=== PATIENT | female | born 1995 | race Caucasian/White ===

== ENCOUNTER 2017-11-26 14:36 | Inpatient (IN) | payer BC, OTHER, MEDICAID ==
[2017-11-26] MEDS ORDERED: Sodium Chloride 0.9% 10 ML Syringe FLUSH PRN (15:31)
[2017-11-26] MEDS ORDERED: Ondansetron 4 MG/2 ML SDV IVPUSH PRN ×2 (15:31→23:25)
--- NOTE | 2017-11-26 15:51 | PCM.LDHP ---
L&D History of Present Illness - General Date of Service: 11/26/17 Admit Problem/Dx: Patient Status Order with Admit Dx/Problem 11/26/17 15:31 Patient Status [ADT] Routine Admission Diagnosis/Problem Admission Diagnosis/Problem Normal labor Source of Information: Patient History Limitations: Reports: No Limitations - History of Present Illness Introduction:: 22 y/o GIOVANNI 11/27/2017 presented to L&D with contractions q6-12min, EGA 39w6d. GBS negative. Birthing plan reviewed. Blood type A- antibody screen negative, hemoglobin and hematocrit 13.5/37.9 platelets 314,000 on 05/21/17. Rubella immune. Serology nonreactive. Hepatitis B surface antigen negative. HIV negative. GC and chlamydia negative. On 10/01/17 hemoglobin hematocrit 12.5/37.0 platelets 346,000 on 09/12/17 antibody screen negative and patient received RhoGam at that time. GBS -11/07/17. Plan delivery. Improves with: Reports: None Worsens with: Reports: None Associated Symptoms: Reports: N - Related Data Allergies/Adverse Reactions: Allergies Allergy/AdvReac Type Severity Reaction Status Date / Time banana Allergy Respiratory Verified 07/27/15 23:05 Distress [place] Allergy Difficulty Uncoded 07/27/15 23:05 Breathing Home Medications: Home Meds Ondansetron [Zofran ODT] 4 mg PO Q8H PRN #12 tab.dis 07/28/15 [Rx] Tamsulosin HCl [Flomax] 0.4 mg PO DAILY #7 cap.er.24h 07/28/15 [Rx] Nitrofurantoin Macrocrystal [Macrodantin] 100 mg PO BID #14 capsule 07/30/15 [Rx ] traMADol [Ultram] 50 mg PO Q6H #15 tablet 07/30/15 [Rx] Past Medical History - Past Health History Medical/Surgical History: Denies Medical/Surgical History Genitourinary History: Reports: Renal Calculus 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: - Past Surgical History Female Surgical History: Reports: None Social & Family History - Family History Family Medical History: Noncontributory Cardiac: Reports: Heart Failure Endocrine/Metabolic: Reports: Diabetes, type II H&P Review of Systems - Review of Systems: Review Of Systems: See Below General: Reports: No Symptoms HEENT: Reports: No Symptoms Pulmonary: Reports: No Symptoms Cardiovascular: Reports: No Symptoms Gastrointestinal: Reports: No Symptoms Genitourinary: Reports: No Symptoms Musculoskeletal: Reports: No Symptoms Skin: Reports: No Symptoms Psychiatric: Reports: No Symptoms Neurological: Reports: No Symptoms Hematologic/Lymphatic: Reports: No Symptoms Immunologic: Reports: No Symptoms L&D Exam - Exam Exam: See Below - Vital Signs Weight: 201 lb 5 oz - OB Specific Fundal Height In cm: 39 Contraction Duration (sec): 60 Contraction Frequency (min): 6 Contraction Intensity: Moderate to Strong Movement: Active Heart Tones: Present Heart Tones per Min: 135 Heart Rate (FHR) Variability: Moderate (6-25 bmp) Presentation: Vertex - Jones Score Jones Score Cervix Position: Midposition Jones Score Consistency: Soft Jones Score Effacement: >80% Jones Score Dilation: > 5 cm Jones Score Infant's Station: -2 Jones Score Total: 10 - Exam General: Alert, Oriented HEENT: Conjunctiva Clear, Mucosa Moist & [place], PERRLA Neck: Supple, Trachea Midline Lungs: Clear to Auscultation, Normal Respiratory Effort Cardiovascular: Regular Rate, Regular Rhythm GI/Abdominal Exam: Normal Bowel Sounds, Soft Genitourinary: Normal external exam Extremities: Normal Inspection, Normal Range of Motion, Non-Tender, No Pedal Edema, Normal Capillary Refill Skin: Warm, Dry, Intact Neurological: Cranial Nerves Intact, Reflexes Equal Bilateral DTR: 0: Patella (L) (2+ edema), Patella (R) (2+ edema) Psychiatric: Alert, Normal Affect, Normal Mood - Problem List (1) 39 weeks gestation of SNOMED Code(s): 33652593 ICD Code: Z3A.39 - 39 WEEKS GESTATION OF Status: Acute Current Visit: Yes Problem List Initiated/Reviewed/Updated: No Orders Last 24hrs: Active Orders 24 hr Category Date Time Status Patient Status [ADT] Routine ADT 11/26/17 15:31 Active Activity as Tolerated [RC] PFP Care 11/26/17 15:31 Active Communication Order [RC] ASDIRECTED Care 11/26/17 15:31 Active Heart Tones [RC] ASDIRECTED Care 11/26/17 15:31 Active Notify Provider [RC] PFP Care 11/26/17 15:31 Active Notify Provider [RC] PRN Care 11/26/17 15:31 Active Peripheral IV Care [RC] . DIRECTED Care 11/26/17 15:31 Active Pump Management, Intrathecal [RC] ASDIRECTED Care 11/26/17 15:33 Active Urinary Catheter Assessment [RC] ASDIRECTED Care 11/26/17 15:31 Active Vital Signs [RC] PER UNIT ROUTINE Care 11/26/17 15:31 Active Regular Diet [DIET] Diet 11/26/17 Lunch Active ALANINE AMINOTRANSFERASE,ALT [CHEM] Stat Lab 11/26/17 15:34 Ordered ASPARTATE AMNIOTRANSFERASE,AST [CHEM] Stat Lab 11/26/17 15:34 Ordered BLOOD UREA NITROGEN,BUN [CHEM] Stat Lab 11/26/17 15:34 Ordered CBC WITH AUTO DIFF [HEME] Stat Lab 11/26/17 15:34 Ordered CREATININE W/GFR [CHEM] Stat Lab 11/26/17 15:34 Ordered LACTATE DEHYDROGENASE,LDH [CHEM] Stat Lab 11/26/17 15:34 Ordered UA W/O MICROSCOPIC [URIN] Stat Lab 11/26/17 15:31 Ordered URIC ACID [CHEM] Stat Lab 11/26/17 15:34 Ordered Lactated Ringers [Ringers, Lactated] 1,000 ml Med 11/26/17 15:45 Active IV ASDIRECTED Ondansetron [Zofran] Med 11/26/17 15:31 Active 4 mg IVPUSH Q4H PRN Oxytocin [Pitocin] 20 unit Med 11/26/17 15:45 Active Lactated Ringers [Ringers, Lactated] 1,000 ml IV ASDIRECTED Sodium Chloride 0.9% [Saline Flush] Med 11/26/17 15:31 Active 10 ml FLUSH ASDIRECTED PRN Electronic Heart Tones Ext w TOCO [WOMSER] Oth 11/26/17 15:31 Ordered Routine Electronic Heart Tones Internal [WOMSER] Per Unit Oth 11/26/17 15:31 Ordered Routine PIH Panel [OM.PC] Stat Oth 11/26/17 15:34 Ordered Peripheral IV Insertion Adult [OM.PC] Routine Oth 11/26/17 15:31 Ordered Resuscitation Status Routine Resus Stat 11/26/17 15:31 Ordered Medication Orders Lactated Ringer's (Ringers, Lactated) 1,000 mls @ 100 mls/hr IV ASDIRECTED JIM Oxytocin 20 unit/ Lactated (Ringer's) 1,002 mls @ 500 mls/hr IV ASDIRECTED JIM Ondansetron HCl (Zofran) 4 mg IVPUSH Q4H PRN PRN Reason: Nausea/Vomiting Sodium Chloride (Saline Flush) 10 ml FLUSH ASDIRECTED PRN PRN Reason: Keep Vein Open Assessment/Plan Comment:: Plan delivery.
[2017-11-26] MEDS: Lactated Ringers 1,000 ML IV SCH ×2 (17:33→20:01)
--- NOTE | 2017-11-26 18:20 | PCM.SN ---
- Free Text/Narrative Note: 11/26/171816 Amnoitomy clear fluid to very lightly meconium stained, so light difficult to tell. Cervix 6/90 %/Soft mid-position, vertex -1. Cat I FHR.
[2017-11-26] MEDS ORDERED: Nalbuphine 20 MG/ML 1 ML Syringe IVPUSH PRN (20:00)
[2017-11-26] MEDS ORDERED: fentaNYL 100 MCG/2 ML SDV EPIDUR PRN (23:25)
[2017-11-26] MEDS ORDERED: diphenhydrAMINE 50 MG/ML SDV IVPUSH PRN (23:25)
[2017-11-26] MEDS ORDERED: ePHEDrine 50 MG/ML SDV IVPUSH PRN (23:25)
--- NOTE | 2017-11-26 23:28 | PCM.PREANE ---
Preanesthetic Assessment - Procedure Proposed Procedure: Epidural - Anesthesia/Transfusion/Family Hx Anesthesia History: No Prior Anesthesia Family History of Anesthesia Reaction: No Transfusion History: No Prior Transfusion(s) - Review of Systems General: No Symptoms Pulmonary: No Symptoms Cardiovascular: No Symptoms Gastrointestinal: No Symptoms Neurological: No Symptoms Other: Reports: None - Physical Assessment Pulse: 73 O2 Sat by Pulse Oximetry: 98 Respiratory Rate: 18 Blood Pressure: 139/74 Vital Signs: Last Vital Signs Temp 36.7 C 11/26/17 15:31 Pulse 73 11/26/17 16:01 Resp 18 11/26/17 15:31 BP 139/74 11/26/17 16:01 Pulse Ox Height: 1.57 m Weight: 91.314 kg ASA Class: 2E Mental Status: Alert & Oriented x3 Airway Class: Mallampati = 1 Dentition: Reports: Normal Dentition Thyro-Mental Finger Breadths: 3 Mouth Opening Finger Breadths: 3 ROM/Head Extension: Full Lungs: Clear to Auscultation, Normal Respiratory Effort Cardiovascular: Regular Rate, Regular Rhythm - Lab Values: Laboratory Last Values WBC 12.54 K/mm3 (3.98-10.04) H 11/26/17 15:45 RBC 3.98 M/mm3 (3.98-5.22) 11/26/17 15:45 Hgb 11.7 gm/L (11.2-15.7) 11/26/17 15:45 Hct 35.0 % (34.1-44.9) 11/26/17 15:45 MCV 87.9 fl (79.4-94.8) 11/26/17 15:45 MCH 29.4 pg (25.6-32.2) 11/26/17 15:45 MCHC 33.4 g/dl (32.2-35.5) 11/26/17 15:45 RDW Std Deviation 40.7 fL (36.4-46.3) 11/26/17 15:45 Plt Count 314 K/mm3 (182-369) 11/26/17 15:45 MPV 10.1 fl (9.4-12.3) 11/26/17 15:45 Neut % (Auto) 74.2 % (34.0-71.1) H 11/26/17 15:45 Lymph % (Auto) 16.7 % (19.3-51.7) L 11/26/17 15:45 Sebastian % (Auto) 7.8 % (4.7-12.5) 11/26/17 15:45 Eos % (Auto) 0.6 (0.7-5.8) L 11/26/17 15:45 Baso % (Auto) 0.1 % (0.1-1.2) 11/26/17 15:45 Neut # (Auto) 9.31 K/mm3 (1.56-6.13) H 11/26/17 15:45 Lymph # (Auto) 2.10 K/mm3 (1.18-3.74) 11/26/17 15:45 Sebastian # (Auto) 0.98 K/mm3 (0.24-0.36) H 11/26/17 15:45 Eos # (Auto) 0.07 K/mm3 (0.04-0.36) 11/26/17 15:45 Baso # (Auto) 0.01 K/mm3 (0.01-0.08) 11/26/17 15:45 BUN 11 mg/dL (7-18) 11/26/17 15:45 Creatinine 0.7 mg/dL (0.55-1.02) 11/26/17 15:45 Est Cr Clr Drug Dosing 101.39 mL/min 11/26/17 15:45 Estimated GFR (MDRD) > 60 mL/min (>60) 11/26/17 15:45 Uric Acid 6.3 mg/dL (2.6-6.0) H 11/26/17 15:45 AST 16 U/L (15-37) 11/26/17 15:45 ALT 12 U/L (14-59) L 11/26/17 15:45 Lactate Dehydrogenase 192 U/L (81-234) 11/26/17 15:45 Urine Color Light yellow (Yellow) 11/26/17 15:31 Urine Appearance Clear (Clear) 11/26/17 15:31 Urine pH 7.0 (5.0-8.0) 11/26/17 15:31 Ur Specific [place] 1.020 (1.005-1.030) 11/26/17 15:31 Urine Protein Negative (Negative) 11/26/17 15:31 Urine Glucose (UA) Negative (Negative) 11/26/17 15:31 Urine Ketones Negative (Negative) 11/26/17 15:31 Urine Occult Blood Trace-intact (Negative) H 11/26/17 15:31 Urine Nitrite Negative (Negative) 11/26/17 15:31 Urine Bilirubin Negative (Negative) 11/26/17 15:31 Urine Urobilinogen 0.2 (0.2-1.0) 11/26/17 15:31 Ur Leukocyte Esterase 1+ (Negative) H 11/26/17 15:31 RPR Non-reactive (NONREACTIVE) 11/26/17 15:45 Blood Type A NEGATIVE 11/26/17 15:45 Gel Antibody Screen Negative 11/26/17 15:45 - Allergies Allergies/Adverse Reactions: Allergies Allergy/AdvReac Type Severity Reaction Status Date / Time banana Allergy Respiratory Verified 07/27/15 23:05 Distress [place] Allergy Difficulty Uncoded 07/27/15 23:05 Breathing - Acknowledgements Anesthesia Type Planned: Epidural Pt an Appropriate Candidate for the Planned Anesthesia: Yes Alternatives and Risks of Anesthesia Discussed w Pt/Guardian: Yes Pt/Guardian Understands and Agrees with Anesthesia Plan: Yes PreAnesthesia Questionnaire - Past Health History Medical/Surgical History: Denies Medical/Surgical History Genitourinary History: Reports: Renal Calculus 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: - Past Surgical History Female Surgical History: Reports: None - SUBSTANCE USE Smoking Status *Q: Former Smoker Tobacco Use Within Last Twelve Months: Cigarettes Second Hand Smoke Exposure: No Recreational Drug Use History: No - HOME MEDS Home Medications: Home Meds Vits #93/Iron Fum/FA [ Formula Tablet] 1 tab PO DAILY 11/26/17 [History] - CURRENT (IN HOUSE) MEDS Current Meds: Current Medications Diphenhydramine HCl (Benadryl) 25 mg IVPUSH Q6H PRN PRN Reason: Pruritis Ephedrine Sulfate (Ephedrine Sulfate) 5 mg IVPUSH ASDIRECTED PRN PRN Reason: Hypotension Fentanyl (Sublimaze) 100 mcg EPIDUR ONETIME PRN PRN Reason: Pain Fentanyl/Bupivacaine HCl (Fentanyl/Bupivacaine/Ns 2 Mcg-0.125% 100 Ml) 100 ml EPIDUR ASDIRECTED JIM Lactated Ringer's (Ringers, Lactated) 1,000 mls @ 100 mls/hr IV ASDIRECTED [facility] Last Admin: 11/26/17 20:03 Dose: 500 mls/hr Oxytocin 20 unit/ Lactated (Ringer's) 1,002 mls @ 500 mls/hr IV ASDIRECTED [facility] Nalbuphine HCl (Nubain) 10 mg IVPUSH Q3H PRN PRN Reason: PAIN Last Admin: 11/26/17 19:59 Dose: 10 mg Ondansetron HCl (Zofran) 4 mg IVPUSH Q4H PRN PRN Reason: Nausea/Vomiting Ondansetron HCl (Zofran) 4 mg IVPUSH ONETIME PRN PRN Reason: Nausea/Vomiting Sodium Chloride (Saline Flush) 10 ml FLUSH ASDIRECTED PRN PRN Reason: Keep Vein Open
[2017-11-26] MEDS ORDERED: Bupivacaine/fentaNYL/NS 100 ML Bag EPIDUR SCH (23:30)
[2017-11-27] MEDS ORDERED: Bupivacaine 0.25% 10 ML SDV ONE (01:00)
--- NOTE | 2017-11-27 02:05 | PCM.SN ---
- Free Text/Narrative Note: 11/27/2017 0150 Complete since 2129. Pushed until around midnight when exhausted and then patient had epidural placed. Has rested and pushed on and off since epidural placed. Examined, complete, caput at 0 station. Will begin Pitosin at 2 miu/ml and allow epidural to wear off some and see if able to push better. Sow in place. Too high at present time to place vacuum (patient has agreed to same if vertex descends enough) Decelerations with pushing consistent with early decelerations. Discussed vaginal delivery attempt if vertex descends, vacuum forceps application if outlet forceps attainable, and section.
[2017-11-27] MEDS ORDERED: Sodium Chloride 0.9% 10 ML Syringe FLUSH PRN ×3 (02:48→05:35)
[2017-11-27] MEDS ORDERED: Citric Acid/Sodium Citrate Solution 30 ML Cup PO ONE (02:48)
[2017-11-27] MEDS ORDERED: Metoclopramide 10 MG/2 ML SDV IVPUSH ONE (02:48)
[2017-11-27] MEDS ORDERED: ceFAZolin 2 GM in Premix Bag 1 BAG IV ONE (02:48)
--- NOTE | 2017-11-27 02:58 | PCM.SN ---
- Free Text/Narrative Note: 11/27/17 0255 No addition progress with one hour of pushing, vertex at 0 station. Discussed options and will proceed with section.
[2017-11-27] MEDS ORDERED: Bupivacaine 0.5% 30 ML SDV ONE (03:00)
[2017-11-27] MEDS ORDERED: Ondansetron 4 MG/2 ML SDV ONE (03:08)
[2017-11-27] MEDS ORDERED: ceFAZolin 1 GM Vial ONE (03:08)
[2017-11-27] MEDS ORDERED: Oxytocin 10 Units/1 ML SDV ONE (03:08)
[2017-11-27] MEDS ORDERED: fentaNYL 100 MCG/2 ML SDV ONE (03:23)
[2017-11-27] MEDS ORDERED: Lidocaine 2% with EPINEPHrine 1:200,000 20 ML SDV ONE (03:46)
[2017-11-27] MEDS ORDERED: Lactated Ringers 1,000 ML ONE ×2 (03:46)
[2017-11-27] MEDS ORDERED: Sodium Bicarbonate 8.4% 50 MEQ/50 ML SDV ONE (03:46)
[2017-11-27] MEDS ORDERED: Morphine PF 10 MG/10 ML SDV ONE (03:47)
[2017-11-27] MEDS ORDERED: Dexamethasone 4 MG/ML SDV ONE (03:51)
[2017-11-27] MEDS ORDERED: Phenylephrine/Normal Saline 100 MCG/ML 10 ML Syringe ONE (03:51)
[2017-11-27] MEDS ORDERED: Ketorolac 30 MG/ML SDV ONE (03:56)
[2017-11-27] MEDS ORDERED: ePHEDrine 50 MG/ML SDV IVPUSH PRN ×3 (03:57→05:35)
[2017-11-27] MEDS ORDERED: Meperidine PF 50 MG/ML Syringe IVPUSH PRN (03:57)
[2017-11-27] MEDS ORDERED: diphenhydrAMINE 50 MG/ML SDV IVPUSH PRN ×3 (03:57→05:35)
[2017-11-27] MEDS ORDERED: Ondansetron 4 MG/2 ML SDV IVPUSH PRN (03:57)
[2017-11-27] MEDS ORDERED: Meperidine PF 50 MG/ML Syringe ONE (04:13)
--- NOTE | 2017-11-27 04:21 | PCM.POSTAN ---
POST ANESTHESIA ASSESSMENT - MENTAL STATUS Mental Status: Alert, Oriented - VITAL SIGNS Pulse Rate: 140 SaO2: 100 Resp Rate: 20 Blood Pressure: 153/74 Temperature: 37.6 C - RESPIRATORY Respiratory Status: Respiratory Rate WNL, Airway Patent, O2 Saturation Stable, Supplemental Oxygen - CARDIOVASCULAR CV Status: Blood Pressure Stable, Elevated Pulse Rate - GASTROINTESTINAL GI Status: [place] - PAIN Pain Score: 0 - POST OP HYDRATION Hydration Status: Adequate & Stable
--- NOTE | 2017-11-27 04:26 | PCM.OPNOTE ---
- General Post-Op/Procedure Note Date of Surgery/Procedure: 11/27/17 Operative Procedure(s): Low segment transverse section [id number] Pre Op Diagnosis: Prepared to progress, prolonged second stage Post-Op Diagnosis: Same plus nuchal cord 1 tight Anesthesia Technique: Epidural Primary Surgeon: Juwan Lovett Secondary Surgeon: Meagan Hagan Anesthesia Provider: Megan Sullivan Reason Apartment Maintenance Was Necessary: Asst. surgery, retraction, decrease comorbidity and comortality Role of Apartment Maintenance: Asst. surgery, retraction, decrease comorbidity and comortality Fluid Replacement, Intraop: 2,000 Output, Urine Amount: 250 EBL in mLs: 500 Drain/Tube Comments:: Sow Complications: None Condition: Good Free Text/Narrative:: Intake & Output 11/26/17 11/26/17 11/27/17 14:59 22:59 06:59 Intake Total 1000 Balance 1000 Patient was transported to the operating room #1 and placed under epidural anesthesia in the supine position with wedge under the right hip and right flank. Sow catheter in place draining. Prepared and draped in a sterile fashion. SCDs in place and functioning, Ancef 2 g given intravenously prior surgery. Timeout performed confirming name date of and procedure as section. Adequate level of anesthesia was confirmed and father of the baby brought to the operating room. Injecting 20 mL of 0.5% Marcaine in the area of the planned incision, Pfannenstiel incision was made and care was sharp section to into the anterior fascia peritoneal cavity was entered without difficulty. Bladder flap created pushed caudad. Pfannenstiel incision was made and endometrial cavity entered without difficulty. No meconium staining. Nuchal cord 1 tight. The head was carefully delivered from the vagina, nuchal cord reduced and vacuum applied times one in the green for less than 10 seconds to assist in delivery of the head. Dr. Lopez branch account manager in attendance throughout. The baby will having been delivered the cord was clamped and handed to Dr. Lopez. Delivery time 0333 hrs. male weight 8 lbs. 9 oz. Apgars 0/3/9 at 1/5/10 minutes. Cord blood gases were requested but not able to be drawn. Routine cord blood studies were obtained from three-vessel cord, the placenta was removed manually without difficulty. Endometrial cavity was inspected and found free of placental remnants. Sponge needle pack and instrument count correct times one the uterine incision closed in 2 layers with 0 Monocryl. First layer running locking suture second layer horizontal imbricating suture of 0 Monocryl and 2 [id number] sutures appeared to incision tube control hemostasis with 0 Monocryl. Both tubes and ovaries were normal. Clots were cleaned from the gutters and cul-de-sac. The uterus replaced into the abdominal cavity. Uterine incision reinspected and no bleeding. Sponge needle pack instrument count 2, and the abdominal cavity was closed with #1 PDS running suture for the anterior fascia. Irrigation carried out in the subcutaneous tissue. 3 interrupted sutures of 0 Monocryl to approximate the subcutaneous tissue. Skin was closed with 3-0 Monocryl subcuticular Elver needle. Dermabond Preneo applied. Clots were cleaned from the vagina. Patient was transported postanesthesia care unit in satisfactory condition no blood transfusions required not anticipated at present time.
[2017-11-27] MEDS ORDERED: Lanolin 100% Cream 7 GM Tube TOP PRN ×2 (04:29→05:35)
[2017-11-27] MEDS ORDERED: Naloxone 0.4 MG/ML SDV IVPUSH PRN ×2 (04:29→05:35)
[2017-11-27] MEDS ORDERED: Witch Hazel Medicated Pads 100/Jar TOP PRN (04:29)
[2017-11-27] MEDS ORDERED: Ondansetron 4 MG/2 ML SDV IV PRN ×2 (04:29→05:35)
[2017-11-27] MEDS ORDERED: Acetaminophen 325 MG Tab PO PRN ×2 (04:29→05:35)
[2017-11-27] MEDS ORDERED: Dextrose 5%-Lactated Ringers 1,000 ML IV SCH ×2 (04:30→05:35)
[2017-11-27] MEDS ORDERED: Acetaminophen/oxyCODONE 325-5 MG Tab PO PRN (05:35)
[2017-11-27] MEDS ORDERED: Ibuprofen 600 MG Tab PO PRN (05:35)
[2017-11-27] MEDS ORDERED: Docusate Sodium 100 MG Cap PO PRN (05:35)
[2017-11-27] MEDS ORDERED: Simethicone 80 MG Tab.Chew PO SCH (09:00)
[2017-11-27] MEDS: Simethicone 80 MG Tab.Chew PO SCH ×4 (09:42→21:36)
[2017-11-27] MEDS: Ketorolac 30 MG/ML SDV IVPUSH SCH ×3 (09:42→21:36)
[2017-11-27] MEDS ORDERED: Ketorolac 30 MG/ML SDV IVPUSH SCH (10:00)
[2017-11-28] MEDS: Acetaminophen/oxyCODONE 325-5 MG Tab PO PRN ×5 (01:46→22:01)
[2017-11-28] MEDS ORDERED: Ibuprofen 600 MG Tab PO PRN (04:00)
--- NOTE | 2017-11-28 07:48 | PCM48HPAN ---
Post Anesthesia Note - EVALUATION WITHIN 48HRS OF ANESTHETIC Vital Signs in Normal Range: Yes Patient Participated in Evaluation: Yes Respiratory Function Stable: Yes Airway Patent: Yes Cardiovascular Function Stable: Yes Hydration Status Stable: Yes Pain Control Satisfactory: Yes Nausea and Vomiting Control Satisfactory: Yes Mental Status Recovered: Yes Pulse Rate: 120 Resp Rate: 18 Temperature: 37.1 C Blood Pressure: 129/75 - COMMENTS/OBSERVATIONS Free Text/Narrative:: Patient denies anesthetic complications. Baby at bedside doing well.
--- NOTE | 2017-11-28 10:56 | PCM.SN ---
- Free Text/Narrative Note: 11/28/2017 1053 POD/PPD #1 Afebrile, no complaints. Uterus involuting, incision normal, no heavy vaginal bleeding. No leg cramping. H/H this morning 8.1/25.1 not symptomatic pulse 110. Repeat CBC in AM
[2017-11-28] MEDS: Docusate Sodium 100 MG Cap PO PRN (12:17)
[2017-11-28] MEDS: Simethicone 80 MG Tab.Chew PO SCH ×4 (13:48→21:49)
[2017-11-29] MEDS: Acetaminophen/oxyCODONE 325-5 MG Tab PO PRN ×2 (05:59→10:47)
[2017-11-29] MEDS: Docusate Sodium 100 MG Cap PO PRN (06:00)
--- NOTE | 2017-11-29 09:17 | PCM.DCSUM1 ---
Discharge Summary - Hospital Course Free Text/Narrative:: [facility] Post-Op/Procedure Note Patient Name: TITA LANDRY Date of : 89 Patient Status: Inpatient Attending Provider: Juwan Lovett Date: 11/27/17 04:17 Initialization Date: 11/27/17 04:17 - General Post-Op/Procedure Note Date of Surgery/Procedure: 11/27/17 Operative Procedure(s): Low segment transverse section 50692 Pre Op Diagnosis: Prepared to progress, prolonged second stage Post-Op Diagnosis: Same plus nuchal cord 1 tight Anesthesia Technique: Epidural Primary Surgeon: Juwan Lovett Secondary Surgeon: Meagan Hagan Anesthesia Provider: Megan Sullivan Reason Embossing Calender Operator Was Necessary: Asst. surgery, retraction, decrease comorbidity and comortality Role of Embossing Calender Operator: Asst. surgery, retraction, decrease comorbidity and comortality Fluid Replacement, Intraop: 2,000 Output, Urine Amount: 250 EBL in mLs: 500 Drain/Tube Comments:: Sow Complications: None Condition: Good Free Text/Narrative:: Intake & Output 11/26/17 11/26/17 11/27/17 14:59 22:59 06:59 Intake Total 1000 Balance 1000 Patient was transported to the operating room #1 and placed under epidural anesthesia in the supine position with wedge under the right hip and right flank. Sow catheter in place draining. Prepared and draped in a sterile fashion. SCDs in place and functioning, Ancef 2 g given intravenously prior surgery. Timeout performed confirming name date of and procedure as section. Adequate level of anesthesia was confirmed and father of the baby brought to the operating room. Injecting 20 mL of 0.5% Marcaine in the area of the planned incision, Pfannenstiel incision was made and care was sharp section to into the anterior fascia peritoneal cavity was entered without difficulty. Bladder flap created pushed caudad. Pfannenstiel incision was made and endometrial cavity entered without difficulty. No meconium staining. Nuchal cord 1 tight. The head was carefully delivered from the vagina, nuchal cord reduced and vacuum applied times one in the green for less than 10 seconds to assist in delivery of the head. Dr. Lopez reading specialist in attendance throughout. The baby will having been delivered the cord was clamped and handed to Dr. Lopez. Delivery time 0333 hrs. male weight 8 lbs. 9 oz. Apgars 0/3/9 at 1/5/10 minutes. Cord blood gases were requested but not able to be drawn. Routine cord blood studies were obtained from three-vessel cord, the placenta was removed manually without difficulty. Endometrial cavity was inspected and found free of placental remnants. Sponge needle pack and instrument count correct times one the uterine incision closed in 2 layers with 0 Monocryl. First layer running locking suture second layer horizontal imbricating suture of 0 Monocryl and 2 [id number] sutures appeared to incision tube control hemostasis with 0 Monocryl. Both tubes and ovaries were normal. Clots were cleaned from the gutters and cul-de-sac. The uterus replaced into the abdominal cavity. Uterine incision reinspected and no bleeding. Sponge needle pack instrument count 2, and the abdominal cavity was closed with #1 PDS running suture for the anterior fascia. Irrigation carried out in the subcutaneous tissue. 3 interrupted sutures of 0 Monocryl to approximate the subcutaneous tissue. Skin was closed with 3-0 Monocryl subcuticular Elver needle. Dermabond Preneo applied. Clots were cleaned from the vagina. Patient was transported postanesthesia care unit in satisfactory condition no blood transfusions required not anticipated at present time. HPI Initial Comments: [facility] Post-Op/Procedure Note Patient Name: TITA LANDRY Date of : 89 Patient Status: Inpatient Attending Provider: Juwan Lovett Date: 11/27/17 04:17 Initialization Date: 11/27/17 04:17 - General Post-Op/Procedure Note Date of Surgery/Procedure: 11/27/17 Operative Procedure(s): Low segment transverse section 62439 Pre Op Diagnosis: Prepared to progress, prolonged second stage Post-Op Diagnosis: Same plus nuchal cord 1 tight Anesthesia Technique: Epidural Primary Surgeon: Juwan Lovett Secondary Surgeon: Meagan Hagan Anesthesia Provider: Megan Sullivan Reason Embossing Calender Operator Was Necessary: Asst. surgery, retraction, decrease comorbidity and comortality Role of Embossing Calender Operator: Asst. surgery, retraction, decrease comorbidity and comortality Fluid Replacement, Intraop: 2,000 Output, Urine Amount: 250 EBL in mLs: 500 Drain/Tube Comments:: Sow Complications: None Condition: Good Free Text/Narrative:: Intake & Output 11/26/17 11/26/17 11/27/17 14:59 22:59 06:59 Intake Total 1000 Balance 1000 Patient was transported to the operating room #1 and placed under epidural anesthesia in the supine position with wedge under the right hip and right flank. Sow catheter in place draining. Prepared and draped in a sterile fashion. SCDs in place and functioning, Ancef 2 g given intravenously prior surgery. Timeout performed confirming name date of and procedure as section. Adequate level of anesthesia was confirmed and father of the baby brought to the operating room. Injecting 20 mL of 0.5% Marcaine in the area of the planned incision, Pfannenstiel incision was made and care was sharp section to into the anterior fascia peritoneal cavity was entered without difficulty. Bladder flap created pushed caudad. Pfannenstiel incision was made and endometrial cavity entered without difficulty. No meconium staining. Nuchal cord 1 tight. The head was carefully delivered from the vagina, nuchal cord reduced and vacuum applied times one in the green for less than 10 seconds to assist in delivery of the head. Dr. Lopez reading specialist in attendance throughout. The baby will having been delivered the cord was clamped and handed to Dr. Lopez. Delivery time 0333 hrs. male weight 8 lbs. 9 oz. Apgars 0/3/9 at 1/5/10 minutes. Cord blood gases were requested but not able to be drawn. Routine cord blood studies were obtained from three-vessel cord, the placenta was removed manually without difficulty. Endometrial cavity was inspected and found free of placental remnants. Sponge needle pack and instrument count correct times one the uterine incision closed in 2 layers with 0 Monocryl. First layer running locking suture second layer horizontal imbricating suture of 0 Monocryl and 2 [id number] sutures appeared to incision tube control hemostasis with 0 Monocryl. Both tubes and ovaries were normal. Clots were cleaned from the gutters and cul-de-sac. The uterus replaced into the abdominal cavity. Uterine incision reinspected and no bleeding. Sponge needle pack instrument count 2, and the abdominal cavity was closed with #1 PDS running suture for the anterior fascia. Irrigation carried out in the subcutaneous tissue. 3 interrupted sutures of 0 Monocryl to approximate the subcutaneous tissue. Skin was closed with 3-0 Monocryl subcuticular Elver needle. Dermabond Preneo applied. Clots were cleaned from the vagina. Patient was transported postanesthesia care unit in satisfactory condition no blood transfusions required not anticipated at present time. Brief History: [facility] . Post-Op/Procedure Note. [facility] Record Number: [id number]. Date of : Patient Status: Inpatient. Attending Provider: Juwan Lovettount Number: [id number]. Date: 11/27/17 04:17Initialization Date: 11/27/17 04:17. - General Post-Op/Procedure Note. Date of Surgery/Procedure: 11/27/17. Operative Procedure(s): Low segment transverse section 88444. Pre Op Diagnosis: Prepared to progress, prolonged second stage. Post-Op Diagnosis: Same plus nuchal cord 1 tight. Anesthesia Technique: Epidural. Primary Surgeon: Juwan Lovett. Secondary Surgeon: Meagan Hagan. Anesthesia Provider: Megan Sullivan. Reason Embossing Calender Operator Was Necessary: Asst. surgery, retraction, decrease comorbidity and comortality. Role of Embossing Calender Operator: Asst. surgery, retraction, decrease comorbidity and comortality. Fluid Replacement, Intraop: 2,000. Output, Urine Amount: 250. EBL in mLs: 500. Drain/Tube Comments:: Sow. Complications: None. Condition: Good. Free Text/ Narrative:: Intake & Output. 11/26/1805/04/1806. 14:5922:[id number]. Intake [id number]. [id number]. Patient was transported to the operating room # 1 and placed under epidural anesthesia in the supine position with wedge under the right hip and right flank. Sow catheter in place draining. Prepared and draped in a sterile fashion. SCDs in place and functioning, Ancef 2 g given intravenously prior surgery. Timeout performed confirming name date of and procedure as section. Adequate level of anesthesia was confirmed and father of the baby brought to the operating room. Injecting 20 mL of 0.5% Marcaine in the area of the planned incision, Pfannenstiel incision was made and care was sharp section to into the anterior fascia peritoneal cavity was entered without difficulty. Bladder flap created pushed caudad. Pfannenstiel incision was made and endometrial cavity entered without difficulty. No meconium staining. Nuchal cord 1 tight. The head was carefully delivered from the vagina, nuchal cord reduced and vacuum applied times one in the green for less than 10 seconds to assist in delivery of the head. Dr. Lopez reading specialist in attendance throughout. The baby will having been delivered the cord was clamped and handed to Dr. Lopez. Delivery time 0333 hrs. male weight 8 lbs. 9 oz. Apgars 0/3/9 at 1/5/10 minutes. Cord blood gases were requested but not able to be drawn. Routine cord blood studies were obtained from three- vessel cord, the placenta was removed manually without difficulty. Endometrial cavity was inspected and found free of placental remnants. Sponge needle pack and instrument count correct times one the uterine incision closed in 2 layers with 0 Monocryl. First layer running locking suture second layer horizontal imbricating suture of 0 Monocryl and 2 [id number] sutures appeared to incision tube control hemostasis with 0 Monocryl. Both tubes and ovaries were normal. Clots were cleaned from the gutters and cul-de-sac. The uterus replaced into the abdominal cavity. Uterine incision reinspected and no bleeding. Sponge needle pack instrument count 2, and the abdominal cavity was closed with #1 PDS running suture for the anterior fascia. Irrigation carried out in the subcutaneous tissue. 3 interrupted sutures of 0 Monocryl to approximate the subcutaneous tissue. Skin was closed with 3-0 Monocryl subcuticular Elver needle. Dermabond Preneo applied. Clots were cleaned from the vagina. Patient was transported postanesthesia care unit in satisfactory condition no blood transfusions required not anticipated at present time. Diagnosis: Stroke: No - Discharge Data Discharge Date: 11/29/17 Discharge Disposition: Home, Self-Care 01 Condition: Good - Discharge Diagnosis/Problem(s) (1) 39 weeks gestation of SNOMED Code(s): 50881061 ICD Code: Z3A.39 - 39 WEEKS GESTATION OF Status: Acute Current Visit: Yes (2) Anemia-delivered w/ complication SNOMED Code(s): 60336537, 781834382 ICD Code: O99.03 - ANEMIA COMPLICATING THE PUERPERIUM Status: Acute Current Visit: Yes - Patient Summary/Data Operative Procedure(s) Performed: Low segment transverse section 83059 Complications: None Consults: None Hospital Course: Uneventful . - Patient Instructions Diet: Regular Diet as Tolerated Activity: No Lifting Over 25 Pounds, No Strenuous Activities Driving: Do Not Drive (48 hours) Showering/Bathing: May Shower, No Tub Bathing/Swimming (6 weeks) Wound/Incision Care: Keep Operative Site/Wound Site Clean and Dry, Do NOT Change Dressing Notify Provider of: Fever, Increased Pain, Swelling and Redness, Drainage, Nausea and/or Vomiting - Discharge Plan Prescriptions/Med Rec: Acetaminophen/oxyCODONE [Percocet 325-5 MG] 1 tab PO Q6H PRN #15 tablet PRN Reason: Pain (Moderate 4-6) Ibuprofen [Advil Liqui-Gels] 200 mg PO Q6H #50 capsule Iron,Carbonyl/Ascorbic Acid [Iron 100-Vitamin C Tablet] 1 each PO BID #100 tablet Home Medications: Home Meds Vits #93/Iron Fum/FA [ Formula Tablet] 1 tab PO DAILY 11/26/17 [History] Acetaminophen [Tylenol] 650 mg PO Q4H PRN tablet 11/29/17 [Rx] Acetaminophen/oxyCODONE [Percocet 325-5 MG] 1 tab PO Q6H PRN #15 tablet [Rx] Docusate Sodium [Colace] 100 mg PO Q12H PRN cap 11/29/17 [Rx] Ibuprofen [Advil Liqui-Gels] 200 mg PO Q6H #50 capsule 11/29/17 [Rx] Iron,Carbonyl/Ascorbic Acid [Iron 100-Vitamin C Tablet] 1 each PO BID #100 tablet 11/29/17 [Rx] Simethicone 80 mg PO PCBED tab.chew 11/29/17 [Rx] Referrals: Juwan Lovett MD [Primary Care Provider] - (To make an polyp to see me on 12/11/2017.) - Discharge Summary/Plan Comment DC Time >30 min.: No - Patient Data Vitals - Most Recent: Last Vital Signs Temp 98.4 F 11/29/17 03:50 Pulse 100 11/29/17 03:50 Resp 16 11/29/17 03:50 BP 130/56 L 11/29/17 03:50 Pulse Ox 98 11/29/17 03:50 Weight - Most Recent: 201 lb 5 oz Lab Results - Last 24 hrs: Laboratory Results - last 24 hr 11/29/17 Range/Units 06:23 WBC 13.76 H (3.98-10.04) K/mm3 RBC 2.74 L (3.98-5.22) M/mm3 Hgb 8.0 L (11.2-15.7) gm/L Hct 24.8 L (34.1-44.9) % MCV 90.5 (79.4-94.8) fl MCH 29.2 (25.6-32.2) pg MCHC 32.3 (32.2-35.5) g/dl RDW Std Deviation 43.0 (36.4-46.3) fL Plt Count 263 (182-369) K/mm3 MPV 9.5 (9.4-12.3) fl Neut % (Auto) 77.3 H (34.0-71.1) % Lymph % (Auto) 16.4 L (19.3-51.7) % Vernon % (Auto) 5.2 (4.7-12.5) % Eos % (Auto) 0.7 (0.7-5.8) Baso % (Auto) 0.1 (0.1-1.2) % Neut # (Auto) 10.65 H (1.56-6.13) K/mm3 Lymph # (Auto) 2.25 (1.18-3.74) K/mm3 Vernon # (Auto) 0.72 H (0.24-0.36) K/mm3 Eos # (Auto) 0.09 (0.04-0.36) K/mm3 Baso # (Auto) 0.01 (0.01-0.08) K/mm3 Med Orders - Current: Current Medications Acetaminophen (Tylenol) 650 mg PO Q4H PRN PRN Reason: mild pain or fever Diphenhydramine HCl (Benadryl) 25 mg IVPUSH Q6H PRN PRN Reason: Itching or Nausea Docusate Sodium (Colace) 100 mg PO Q12H PRN PRN Reason: Constipation Last Admin: 11/29/17 06:00 Dose: 100 mg Emollient Ointment (Lansinoh Hpa) 0 gm TOP ASDIRECTED PRN PRN Reason: Sore Nipples Last Admin: 11/28/17 21:52 Dose: 1 applic Ephedrine Sulfate (Ephedrine Sulfate) 5 mg IVPUSH SEECOMMENT PRN PRN Reason: Other Ibuprofen (Motrin) 600 mg PO Q6H PRN PRN Reason: mild pain or fever Naloxone HCl (Narcan) 0.1 mg IVPUSH SEECOMMENT PRN PRN Reason: Respiratory Depression Ondansetron HCl (Zofran) 4 mg IVPUSH ONETIME PRN PRN Reason: Nausea/Vomiting Ondansetron HCl (Zofran) 4 mg IV Q8H PRN PRN Reason: Nausea/Vomiting Oxycodone/Acetaminophen (Percocet 325-5 Mg) 2 tab PO Q4H PRN PRN Reason: Pain (moderate 4-6) Last Admin: 11/29/17 05:59 Dose: 2 tab Simethicone (Simethicone) 80 mg PO PCBED JIM Last Admin: 11/28/17 21:49 Dose: 80 mg Sodium Chloride (Saline Flush) 10 ml FLUSH ASDIRECTED PRN PRN Reason: Keep Vein Open Witch Lisa (Tucks) 1 pad TOP ASDIRECTED PRN PRN Reason: Perineal Comfort Measure Discontinued Medications Acetaminophen (Tylenol) 650 mg PO Q4H PRN PRN Reason: mild pain or fever Bupivacaine HCl (Marcaine 0.5%) Confirm Administered Dose 30 ml .ROUTE .STK-MED ONE Stop: 11/27/17 03:01 Last Admin: 11/27/17 03:28 Dose: 20 ml Bupivacaine HCl (Sensorcaine-Mpf 0.25%) 10 ml .ROUTE .STK-MED ONE Stop: 11/27/17 01:01 Cefazolin Sodium (Ancef) Confirm Administered Dose 2 gm .ROUTE .STK-MED ONE Stop: 11/27/17 03:09 Citric Acid/Sodium Citrate (Bicitra Solution) 30 ml PO ONETIME ONE Stop: 11/27/17 02:49 Dexamethasone (Dexamethasone) Confirm Administered Dose 4 mg .ROUTE .STK-MED ONE Stop: 11/27/17 03:52 Diphenhydramine HCl (Benadryl) 25 mg IVPUSH Q6H PRN PRN Reason: Pruritis Diphenhydramine HCl (Benadryl) 25 mg IVPUSH Q6H PRN PRN Reason: Itching or Nausea Docusate Sodium (Colace) 100 mg PO Q12H PRN PRN Reason: Constipation Emollient Ointment (Lansinoh Hpa) 0 gm TOP ASDIRECTED PRN PRN Reason: Sore Nipples Ephedrine Sulfate (Ephedrine Sulfate) 5 mg IVPUSH ASDIRECTED PRN PRN Reason: Hypotension Ephedrine Sulfate (Ephedrine Sulfate) 5 mg IVPUSH SEECOMMENT PRN PRN Reason: Other Fentanyl (Sublimaze) 100 mcg EPIDUR ONETIME PRN PRN Reason: Pain Last Admin: 11/27/17 00:35 Dose: 100 mcg Fentanyl (Sublimaze) Confirm Administered Dose 100 mcg .ROUTE .[facility] ONE Stop: 11/27/17 03:24 Fentanyl/Bupivacaine HCl (Fentanyl/Bupivacaine/Ns 2 Mcg-0.125% 100 Ml) 100 ml EPIDUR ASDIRECTED [facility] Last Admin: 11/27/17 00:35 Dose: 100 ml Lactated Ringer's (Ringers, Lactated) 1,000 mls @ 100 mls/hr IV ASDIRECTED [facility] Last Infusion: 11/26/17 23:30 Dose: Infused Oxytocin 20 unit/ Lactated (Ringer's) 1,002 mls @ 500 mls/hr IV ASDIRECTED [facility] Cefazolin Sodium/Dextrose 2 gm (/ Premix) 50 mls @ 100 mls/hr IV ONETIME ONE Stop: 11/27/17 03:17 Last Admin: 11/27/17 05:54 Dose: Not Given Lactated Ringer's (Ringers, Lactated) Confirm Administered Dose 1,000 mls @ as directed .ROUTE .[facility] ONE Stop: 11/27/17 03:47 Lactated Ringer's (Ringers, Lactated) Confirm Administered Dose 1,000 mls @ as directed .ROUTE .[facility] ONE Stop: 11/27/17 03:47 Dextrose/Lactated Ringer's (Dextrose 5%-Lactated Ringers) 1,000 mls @ 125 mls/ hr IV ASDIRECTED [facility] Stop: 11/27/17 12:29 Last Admin: 11/27/17 06:54 Dose: 125 mls/hr Dextrose/Lactated Ringer's (Dextrose 5%-Lactated Ringers) 1,000 mls @ 125 mls/ hr IV ASDIRECTED [facility] Stop: 11/27/17 13:34 Last Admin: 11/27/17 12:33 Dose: 125 mls/hr Ibuprofen (Motrin) 600 mg PO Q6H PRN PRN Reason: mild pain or fever Ketorolac Tromethamine (Toradol) Confirm Administered Dose 30 mg .ROUTE .STK- MED ONE Stop: 11/27/17 03:57 Ketorolac Tromethamine (Toradol) 30 mg IVPUSH Q6H [facility] Stop: 11/27/17 22:01 Last Admin: 11/27/17 21:36 Dose: 30 mg Ketorolac Tromethamine (Toradol) 30 mg IVPUSH Q6H [facility] Stop: 11/27/17 22:01 Lidocaine/Epinephrine (Xylocaine-Mpf 2%-Epi 1:200,000) Confirm Administered Dose 20 ml .ROUTE .STK-MED ONE Stop: 11/27/17 03:47 Meperidine HCl (Demerol) 12.5 mg IVPUSH ONETIME PRN PRN Reason: Shivering Last Admin: 11/27/17 04:14 Dose: 12.5 mg Meperidine HCl (Demerol) Confirm Administered Dose 50 mg .ROUTE .STK-MED ONE Stop: 11/27/17 04:14 Last Admin: 11/27/17 05:52 Dose: Not Given Metoclopramide HCl (Reglan) 10 mg IVPUSH ONETIME ONE Stop: 11/27/17 02:49 Morphine Sulfate (Duramorph Pf) Confirm Administered Dose 10 mg .ROUTE .STK-MED ONE Stop: 11/27/17 03:48 Nalbuphine HCl (Nubain) 10 mg IVPUSH Q3H PRN PRN Reason: PAIN Last Admin: 11/26/17 19:59 Dose: 10 mg Naloxone HCl (Narcan) 0.1 mg IVPUSH SEECOMMENT PRN PRN Reason: Respiratory Depression Ondansetron HCl (Zofran) 4 mg IVPUSH Q4H PRN PRN Reason: Nausea/Vomiting Ondansetron HCl (Zofran) 4 mg IVPUSH ONETIME PRN PRN Reason: Nausea/Vomiting Ondansetron HCl (Zofran) Confirm Administered Dose 4 mg .ROUTE .STK-MED ONE Stop: 11/27/17 03:09 Ondansetron HCl (Zofran) 4 mg IV Q4H PRN PRN Reason: Nausea/Vomiting Oxycodone/Acetaminophen (Percocet 325-5 Mg) 2 tab PO Q4H PRN PRN Reason: Pain (moderate 4-6) Oxytocin (Pitocin) Confirm Administered Dose 20 unit .ROUTE .STK-MED ONE Stop: 11/27/17 03:09 Phenylephrine HCl (Phenylephrine In Ns 100 Mcg/Ml) Confirm Administered Dose 1 mg .ROUTE .STK-MED ONE Stop: 11/27/17 03:52 Simethicone (Simethicone) 80 mg PO PCBED JIM Sodium Bicarbonate (Sodium Bicarbonate 8.4%) Confirm Administered Dose 50 meq .ROUTE .STK-MED ONE Stop: 11/27/17 03:47 Sodium Chloride (Saline Flush) 10 ml FLUSH ASDIRECTED PRN PRN Reason: Keep Vein Open Sodium Chloride (Saline Flush) 10 ml FLUSH ASDIRECTED PRN PRN Reason: Keep Vein Open Sodium Chloride (Saline Flush) 10 ml FLUSH ASDIRECTED PRN PRN Reason: Keep Vein Open
[2017-11-29] MEDS: Simethicone 80 MG Tab.Chew PO SCH ×2 (10:47→16:01)
[2017-11-29 11:36] VITALS: BP 139/88
== END 2017-11-29 15:00 | disposition home or self-care (01) | DRG 540 ==
LOC: JD.OB 14:36 → JD.OBCHECK 14:36 → JD.OB 16:23 → OBSVTOIN 11-27 03:33 → JD.OB 11-27 03:34
PROVIDERS: ADMIT Obstetrics & Gynecology; ATTEND Obstetrics & Gynecology
PROC: 10D00Z1 Extraction of Products of Conception, Low, Open Approach (ICD-10-PCS; principal; 2017-11-27)
PROC: 3E0S3GC Introduction of Other Therapeutic Substance into Epidural Space, Percutaneous Approach (ICD-10-PCS; 2017-11-27)
DX: O63.1 Prolonged second stage (of labor) (principal); Z3A.39 39 weeks gestation of pregnancy; Z37.0 Single live birth; O69.81X0 Labor and delivery complicated by cord around neck, without compression, not applicable or unspecified; O76 Abnormality in fetal heart rate and rhythm complicating labor and delivery; O90.81 Anemia of the puerperium; D64.9 Anemia, unspecified
CPT/HCPCS: 01967; 01968; 36415; 51702; 59025; 81003; 82565; 83615; 84450; 84460; 84520; 84550; 85025; 86592; 86850; 86900; 86901; 94762; A9270-GY; J0690; J1100; J1885; J2175; J2270; J2300; J2405; J2590; J3010; J7042; J7120